=== PATIENT | female | born 1980 | race Hispanic/Latino ===

== ENCOUNTER 2020-08-18 04:44 | Observation (INO) | payer OTHER ==
--- OUTSIDE RECORDS SUMMARY | 2020-08-18 04:47 | XMS REPORT | Continuity of Care Document ---
:1980 Author Organization [facility] t Address [address] [place] [address] Dr. Merino [address] [place] [id number] Care Team Providers Name Role Phone Unavailable Unavailable Unavailable Problems This patient has no known problems. Allergies, Adverse Reactions, Alerts This patient has no known allergies or adverse reactions. Medications This patient has no known medications. Procedures This patient has no known procedures. Results This patient has no known results.
[2020-08-18] MEDS ORDERED: MORPHINE 4 MG/ML SYR ONE ×2 (05:21→11:42)
[2020-08-18] MEDS ORDERED: NA CHLORIDE 0.9% 1,000 ML ONE (05:22)
[2020-08-18] MEDS ORDERED: ONDANSETRON 4 MG/2 ML VIAL ONE ×3 (05:22→13:32)
[2020-08-18 05:23] LABS: Absolute Lymphocytes (CBC) 0.9 K/uL (0.7-4.9); Basophils % 0.9 % (0-1.3); Hematocrit 40.1 % (36.0-45.0); Lymphocytes % 6.5 % (15.3-44.8); RBC Red Blood Cell Count 4.49 M/uL (3.86-4.86)
[2020-08-18 05:35] LABS: Urine Blood TRACE (NEG); Urine Glucose NEGATIVE (NEG); Urine Protein 2+ (NEG); Urine Specific Gravity >1.030 (1.005-1.030); Urine pH 5.5 (5.0-7.0)
[2020-08-18 05:39] LABS: Albumin 3.9 g/dL (3.4-5.0); Bilirubin Direct 0.3 mg/dL (0-0.2); Bilirubin Total 1.4 mg/dL (0.2-1.0); Potassium 3.8 mmol/L (3.5-5.1); Protein, Total 7.9 g/dL (6.4-8.2)
[2020-08-18] MEDS ORDERED: CEFTRIAXONE/SWI 1gm 1 GM/10 ML SYR ONE (05:47)
--- NOTE | 2020-08-18 06:37 | EDPHYS ---
Physician Documentation [facility] Name: Pau Patterson Age: 40 yrs Sex: Female : 1980 Arrival Date: 08/18/2020 Time: 04:46 Bed 17 Private MD: ED Physician Delio Tovar HPI: 08/18 04:55 This 40 yrs old Female presents to ER via EMS with complaints of Abdominal mali Pain. 04:55 The patient presents with abdominal pain in the upper abdomen, in the lower abdomen. mali Onset: The symptoms/episode began/occurred 2 hour(s) ago. The symptoms do not radiate. Associated signs and symptoms: Pertinent positives:. The symptoms are described as crampy, sharp. Modifying factors: The symptoms are alleviated by remaining still, the symptoms are aggravated by nothing. Severity of pain: At its worst the pain was moderate severe in the emergency department the pain is unchanged. The patient has not experienced similar symptoms in the past. 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 - Social history:: Smoking status: unknown. - Family history:: not pertinent. ROS: 04:55 Constitutional: Negative for fever, chills, and weight loss, Eyes: Negative for injury, mali pain, redness, and discharge, ENT: Negative for injury, pain, and discharge, Neck: Negative for injury, pain, and swelling, Cardiovascular: Negative for chest pain, palpitations, and edema, Respiratory: Negative for shortness of breath, cough, wheezing, and pleuritic chest pain, Back: Negative for injury and pain, : Negative for injury, bleeding, discharge, and swelling, MS/Extremity: Negative for injury and deformity, Skin: Negative for injury, rash, and discoloration, Neuro: Negative for headache, weakness, numbness, tingling, and seizure, Psych: Negative for depression, anxiety, suicide ideation, homicidal ideation, and hallucinations, Allergy/Immunology: Negative for hives, rash, and allergies, Endocrine: Negative for neck swelling, polydipsia, polyuria, polyphagia, and marked weight changes, Hematologic/Lymphatic: Negative for swollen nodes, abnormal bleeding, and unusual bruising. 04:55 Abdomen/GI: Positive for abdominal pain, of the right lower quadrant and left lower quadrant. Exam: 04:55 Constitutional: This is a well developed, well nourished patient who is awake, alert, mali and in no acute distress. Head/Face: Normocephalic, atraumatic. Eyes: Pupils equal round and reactive to light, extra-ocular motions intact. Lids and lashes normal. Conjunctiva and sclera are non-icteric and not injected. Cornea within normal limits. Periorbital areas with no swelling, redness, or edema. ENT: Nares patent. No nasal discharge, no septal abnormalities noted. Tympanic membranes are normal and external auditory canals are clear. Oropharynx with no redness, swelling, or masses, exudates, or evidence of obstruction, uvula midline. Mucous membranes moist. Neck: Trachea midline, no thyromegaly or masses palpated, and no cervical lymphadenopathy. Supple, full range of motion without nuchal rigidity, or vertebral point tenderness. No Meningismus. Chest/axilla: Normal chest wall appearance and motion. Nontender with no deformity. No lesions are appreciated. Cardiovascular: Regular rate and rhythm with a normal S1 and S2. No gallops, murmurs, or rubs. Normal PMI, no JVD. No pulse deficits. Respiratory: Lungs have equal breath sounds bilaterally, clear to auscultation and percussion. No rales, rhonchi or wheezes noted. No increased work of breathing, no retractions or nasal flaring. Back: No spinal tenderness. No costovertebral tenderness. Full range of motion. Skin: Warm, dry with normal turgor. Normal color with no rashes, no lesions, and no evidence of cellulitis. MS/ Extremity: Pulses equal, no cyanosis. Neurovascular intact. Full, normal range of motion. Neuro: Awake and alert, GCS 15, oriented to person, place, time, and situation. Cranial nerves II-XII grossly intact. Motor strength 5/5 in all extremities. Sensory grossly intact. Cerebellar exam normal. Normal gait. Psych: Awake, alert, with orientation to person, place and time. Behavior, mood, and affect are within normal limits. 04:55 Abdomen/GI: Inspection: distension, that is mild, Bowel sounds: normal, Palpation: moderate abdominal tenderness, in the right upper quadrant, left upper quadrant, right lower quadrant and left lower quadrant, Liver: no appreciated palpable abnormalities, Hernia: not appreciated. Vital Signs: 04:47 BP 122 / 99; Pulse 107; Resp 22; Pulse Ox 97% on R/A; Weight 81.65 kg; Height 5 ft. 3 ll2 in. (160.02 cm); 05:00 BP 122 / 99; Pulse 101; Resp 22; Pulse Ox 97% on R/A; ll2 06:00 BP 116 / 73; Pulse 89; Resp 20; Pulse Ox 96% on R/A; ll2 07:00 BP 116 / 90; Pulse 87; Resp 18; Pulse Ox 97% ; rb3 08:00 BP 112 / 84; Pulse 91; Resp 17; Temp 99.0(O); Pulse Ox 96% on R/A; rb3 04:47 Body Mass Index 31.89 (81.65 kg, 160.02 cm) ll2 MDM: 04:46 Patient medically screened. mali 04:58 Differential diagnosis: bowel obstruction, diverticulitis, Endometriosis, Irritable mali bowel syndrome, non-specific abd pain, pancreatitis, Peptic Ulcer Disease, Pyelonephritis, Ureterolithiasis, urinary tract infection. Data reviewed: vital signs, nurses notes, lab test result(s), radiologic studies. Data interpreted: safety leader: rate is 107 beats/min, rhythm is regular, Pulse oximetry: on room air is 97 %. Test interpretation: by ED physician or midlevel provider:. Counseling: I had a detailed discussion with the patient and/or guardian regarding: the historical points, exam findings, and any diagnostic results supporting the discharge/admit diagnosis, lab results, radiology results. 08/18 04:47 Order name: Basic Metabolic Panel; Complete Time: 05:45 ll2 08/18 04:47 Order name: CBC with Diff; Complete Time: 05:45 ll2 08/18 04:47 Order name: Hepatic Function; Complete Time: 05:45 ll2 08/18 04:47 Order name: Lipase; Complete Time: 05:45 ll2 08/18 04:49 Order name: Urine Culture [facility] 08/18 04:49 Order name: CT Abd/Pelvis - IV Contrast Only; Complete Time: 18:26 [facility] 08/18 05:15 Order name: Urine --Ancillary (enter results); Complete Time: 05:45 [facility] 08/18 05:15 Order name: Urine Dipstick--Ancillary (enter results); Complete Time: 05:45 08/18 06:52 Order name: COVID-19 : Document "Date of Symptom Onset" if Symptomatic. 3 08/18 10:17 Order name: SARS-COV-2 RT PCR; Complete Time: 18:26 [facility] 08/18 04:47 Order name: IV Saline Lock; Complete Time: 05:02 [facility] 08/18 04:47 Order name: Labs collected and sent; Complete Time: 05:01 [facility] 08/18 04:49 Order name: IV Saline Lock; Complete Time: 05:00 [facility] 08/18 04:49 Order name: Labs collected and sent; Complete Time: 05:00 [facility] 08/18 04:49 Order name: Urine Dipstick-Ancillary (obtain specimen); Complete Time: 05:14 [facility] 08/18 04:50 Order name: Urine Test (obtain specimen); Complete Time: 05:14 [facility] Administered Medications: 05:00 Drug: NS 0.9% 1000 ml Route: IV; Rate: 1 bolus; Site: right antecubital; ll2 05:00 Drug: morphine 4 mg Route: IVP; Site: right antecubital; ll2 05:00 Drug: Zofran (Ondansetron) 4 mg Route: IVP; Site: right antecubital; ll2 05:20 Drug: Rocephin 1 grams Route: IV; Rate: per protocol; Site: right antecubital; ll2 07:05 Drug: Zosyn 3.375 grams Route: IVPB; Infused Over: 60 mins; Site: right antecubital; ll2 08:02 Follow up: Response: No adverse reaction; IV Status: Completed infusion rb3 Disposition: 08/18/20 06:37 Hospitalization ordered by Wes Scott for Observation. Preliminary diagnosis are Abdominal tenderness, Acute appendicitis. - Bed requested for [facility] ER HOLD. - Status is Observation. rb3 - Condition is Stable. - Problem is new. - Symptoms have improved. Signatures: Dispatcher [employer] Iraida Moreau RN RN dm5 Delio Tovar MD MD cha Linscombe, Lacie, RN RN ll2 Mariela Reddy, RN RN rb3 Corrections: (The following items were deleted from the chart) 05:34 04:50 BASIC METABOLIC PANEL+C.LAB.BRZ ordered. EDMS EDMS 05:34 04:50 CBC+H.LAB.BRZ ordered. EDMS EDMS 05:34 04:50 HEPATIC FUNCTION+C.LAB.BRZ ordered. EDMS EDMS 05:34 04:50 LIPASE+C.LAB.BRZ ordered. EDMS EDMS 10:34 06:37 Hospitalization Ordered by Wes Scott MD for Observation. Preliminary dm5 diagnosis is Abdominal tenderness; Acute appendicitis. Bed requested for Telemetry/MedSurg (observation). Status is Observation. Condition is Stable. Problem is new. Symptoms have improved. [facility] 18:31 10:34 08/18/2020 06:37 Hospitalization Ordered by Wes Scott MD for Observation. rb3 Preliminary diagnosis is Abdominal tenderness; Acute appendicitis. Bed requested for [facility] ER HOLD. Status is Observation. Condition is Stable. Problem is new. Symptoms have improved. dm5
--- NOTE | 2020-08-18 06:37 | ER ---
Nurse's Notes [facility] Name: Pau Patterson Age: 40 yrs Sex: Female : 1980 Arrival Date: 08/18/2020 Time: 04:46 Bed 17 Private MD: Diagnosis: Abdominal tenderness;Acute appendicitis Presentation: 08/18 04:47 Chief complaint: EMS states: toned out for RT and LT lower quadrant pain that began ll2 around 0200. pt denies diarrhea or nausea. rebound tenderness noted on assessment. Coronavirus screen: Client denies travel out of the [place] in the last 14 days. At this time, the client does not indicate any symptoms associated with coronavirus-19. Ebola Screen: Patient negative for fever greater than or equal to 101.5 degrees Fahrenheit, and additional compatible Ebola Virus Disease symptoms. Initial Sepsis Screen: Does the patient meet any 2 criteria? No. Patient's initial sepsis screen is negative. Does the patient have a suspected source of infection? No. Patient's initial sepsis screen is negative. Risk Assessment: Do you want to hurt yourself or someone else? Patient reports no desire to harm self or others. 04:47 Method Of Arrival: EMS: [facility] 2 04:47 Acuity: BEVERLY 3 ll2 05:25 Onset of symptoms was August 18, 2020. ll2 Triage Assessment: 04:52 General: Appears uncomfortable, Behavior is cooperative, appropriate for age. Pain: ll2 Complains of pain in right lower quadrant and left lower quadrant. EENT: No signs and/or symptoms were reported regarding the EENT system. Neuro: Level of Consciousness is awake, alert, obeys commands, Oriented to person, place, time, situation. Cardiovascular: Patient's skin is warm and dry. Respiratory: Airway is patent Respiratory effort is even, unlabored, Respiratory pattern is regular, symmetrical. GI: Abdomen is round. : No signs and/or symptoms were reported regarding the genitourinary system. Derm: Skin is intact, Skin is pink, warm \T\ dry. Musculoskeletal: Circulation, motion, and sensation intact. Range of motion: intact in all extremities. 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 - Social history:: Smoking status: unknown. - Family history:: not pertinent. Screenin:54 Abuse screen: Denies threats or abuse. Nutritional screening: No deficits noted. ll2 Tuberculosis screening: No symptoms or risk factors identified. Fall Risk None identified. Assessment: 04:54 Reassessment: see triage assessment. ll2 04:55 GI: Bowel sounds present X 4 quads. ll2 06:21 Reassessment: Patient and/or family updated on plan of care and expected duration. Pain ll2 level reassessed. Patient is alert, oriented x 3, equal unlabored respirations, skin warm/dry/pink. 07:08 General: Appears in no apparent distress. comfortable, Behavior is calm, cooperative. rb3 Pain: Complains of pain in left lower quadrant and right lower quadrant. Neuro: Level of Consciousness is awake, alert, obeys commands, Oriented to person, place, time, situation. Cardiovascular: Patient's skin is warm and dry. Respiratory: Airway is patent Respiratory effort is even, unlabored, Respiratory pattern is regular, symmetrical. 08:00 Reassessment: Patient appears in no apparent distress at this time. No changes from rb3 previously documented assessment. 09:00 Reassessment: Patient appears in no apparent distress at this time. Patient and/or rb3 family updated on plan of care and expected duration. Pain level reassessed. Patient is alert, oriented x 3, equal unlabored respirations, skin warm/dry/pink. 10:00 Reassessment: Patient appears in no apparent distress at this time. No changes from rb3 previously documented assessment. Vital Signs: 04:47 BP 122 / 99; Pulse 107; Resp 22; Pulse Ox 97% on R/A; Weight 81.65 kg; Height 5 ft. 3 ll2 in. (160.02 cm); 05:00 BP 122 / 99; Pulse 101; Resp 22; Pulse Ox 97% on R/A; ll2 06:00 BP 116 / 73; Pulse 89; Resp 20; Pulse Ox 96% on R/A; ll2 07:00 BP 116 / 90; Pulse 87; Resp 18; Pulse Ox 97% ; rb3 08:00 BP 112 / 84; Pulse 91; Resp 17; Temp 99.0(O); Pulse Ox 96% on R/A; rb3 04:47 Body Mass Index 31.89 (81.65 kg, 160.02 cm) ll2 ED Course: 04:46 Patient arrived in ED. 04:46 Delio Tovar MD is Attending Physician. [facility] 04:47 Soraya Chirinos, MARY JO is Primary Nurse. ll2 04:50 Inserted saline lock: 22 gauge in left forearm, using aseptic technique. Blood ds4 collected. 04:52 Triage completed. ll2 04:54 Patient has correct armband on for positive identification. Pulse ox on. NIBP on. ll2 04:54 Arm band placed on right wrist. ll2 04:54 No provider procedures requiring assistance completed. ll2 06:15 CT Abd/Pelvis - IV Contrast Only In Process Unspecified. EDMD 06:35 Wes Scott MD is Hospitalizing Provider. [facility] 07:41 Primary Nurse role handed off by Soraya Chirinos, MARY JO 1 08:25 Mariela Reddy, MARY JO is Primary Nurse. rb3 13:30 Patient admitted, IV remains in place. rb3 Administered Medications: 05:00 Drug: NS 0.9% 1000 ml Route: IV; Rate: 1 bolus; Site: right antecubital; ll2 05:00 Drug: morphine 4 mg Route: IVP; Site: right antecubital; ll2 05:00 Drug: Zofran (Ondansetron) 4 mg Route: IVP; Site: right antecubital; ll2 05:20 Drug: Rocephin 1 grams Route: IV; Rate: per protocol; Site: right antecubital; ll2 07:05 Drug: Zosyn 3.375 grams Route: IVPB; Infused Over: 60 mins; Site: right antecubital; ll2 08:02 Follow up: Response: No adverse reaction; IV Status: Completed infusion rb3 Outcome: 06:37 Decision to Hospitalize by Provider. mali 13:30 Admitted to OR rb3 13:30 Condition: stable 13:30 Instructed on the need for admit. 18:31 Patient left the ED. rb3 Signatures: Dispatcher [employer] EDMS Acosta, Minh, RN Delio Corbin MD MD cha Martinez, Silvio em1 Ayo Hwang ds4 Soraya Chirinos, RN RN ll2 Mariela Reddy, RN RN rb3
[2020-08-18] MEDS ORDERED: PIPER/TAZO/NS 3.375gm 3.375 GM/100 ML BAG ONE (07:01)
[2020-08-18] MEDS ORDERED: ACETYLCYST 6,000 MG/30 ML VIAL ONE (09:34)
[2020-08-18 10:40] VITALS: BMI 31.8
[2020-08-18] MEDS: D5 0.45 NS 1,000 ML IV SCH ×2 (10:44→16:09)
[2020-08-18] MEDS ORDERED: ONDANSETRON 4 MG/2 ML VIAL IV PRN (10:44)
[2020-08-18] MEDS: FAMOTIDINE 20 MG/2 ML VIAL IV SCH ×2 (10:44→20:30)
[2020-08-18] MEDS ORDERED: ACETAMINOPHEN 325 MG TABLET PO PRN (10:44)
[2020-08-18] MEDS: PIPER/TAZO/NS 3.375gm 3.375 GM/100 ML BAG IVPB SCH ×3 (11:00→20:31)
[2020-08-18] MEDS ORDERED: FAMOTIDINE 20 MG/2 ML VIAL IV ONE (11:43)
[2020-08-18] MEDS: MORPHINE 4 MG/ML SYR IV PRN (11:43)
[2020-08-18] MEDS ORDERED: D5 0.45 NS 1,000 ML IV ONE (11:43)
[2020-08-18] MEDS ORDERED: FENTANYL CITR 100 MCG/2 ML ONE (13:31)
[2020-08-18] MEDS ORDERED: LIDOCAINE 2% MPF 5 ML VIAL ONE (13:32)
[2020-08-18] MEDS ORDERED: KETOROLAC 30 MG/ML INJ ONE (13:32)
[2020-08-18] MEDS ORDERED: dexAMETHasone 10 MG/ML VIAL ONE (13:32)
[2020-08-18] MEDS ORDERED: ROCURONIUM 50 MG/5 ML VIAL IV ONE (13:32)
[2020-08-18] MEDS ORDERED: propofoL 200 MG/20 ML VIAL IV ONE (13:32)
[2020-08-18] MEDS ORDERED: MIDAZOLAM HCL 2 MG/2 ML INJ ONE (13:32)
--- NOTE | 2020-08-18 13:35 | P.HP ---
Date of Service: 08/18/20 PC: This 40-year-old female presents emergency room via EMS with right lower quadrant abdominal pain for diagnosis and treatment. HPC: Patient had sudden onset of right lower quadrant abdominal pain, hurts when she tried to walk. Pain is been unrelenting. Has AE slightly since she had some pain medicine while here but otherwise pains persist. PMH: Negative PSHx: Prior cholecystectomy SOC: No known allergies SYS REVIEW: No cough, wheeze, shortness of breath. No chest pain or palpitations. Says she has otherwise been in pretty good shape. Does have some irregular periods. O/E awake alert vital signs are stable HEENT: Nonicteric Chest: Air entry equal bilaterally ABD: Tenderness with guarding and rebound on the right lower quadrant LOCO: Intact DATA: Elevated white cell count IMPRESSION: CT scan shows appendicitis supporting clinical finding PLAN: I will take her the operating room for laparoscopic possible open appendectomy. The risks of this procedure have been discussed. The possibility of bleeding, infection, injury to bowel blood vessels and surrounding structures were outlined. The possible need for an open and/or further surgeries and procedures was described. She understands and wants to proceed.
[2020-08-18] MEDS ORDERED: Ringers Lactate 1,000 ML IV ONE ×2 (13:46→14:44)
--- NOTE | 2020-08-18 14:04 | RAD REPORT ---
EXAM DESCRIPTION: CT - Abdomen Pelvis W Contrast - 08/18/2020 6:58 am ADDENDUM #[address] Tovar 6:50 AM 08/18/2020 Electronically signed by: Elissa Chaney MD 08/18/2020 6:57 AM PHYSICAL AERODYNAMICIST End of Addendum EXAM: CT Abdomen and Pelvis With Intravenous Contrast CLINICAL HISTORY: ABD PAIN TECHNIQUE: Axial computed tomography images of the abdomen and pelvis with intravenous contrast. Sagittal and coronal reformatted images were created and reviewed. This CT exam was performed using one or more of the following dose reduction techniques: automated exposure control, adjustment of the mA and/or kV according to patient size, and/or use of iterative reconstruction technique. COMPARISON: No relevant prior studies available. FINDINGS: Limitations: None. Lung bases: No abnormality noted. Pleural space: No abnormality noted. Heart: No abnormality noted. Mediastinum: No abnormality noted. ABDOMEN: Liver: No abnormality noted. Gallbladder and bile ducts: Cholecystectomy. Pancreas: Homogeneous enhancement. No mass, inflammation or ductal dilation. Spleen: No abnormality noted. Adrenals: Visualized portions appear normal. Kidneys and ureters: Homogeneous enhancement. No mass, hydronephrosis or stone. Tiny stones c ould be obscured by contrast. Stomach and bowel: No distension or mucosal thickening. No inflammation noted. PELVIS: Appendix: The appendix is dilated to about 14 mm and is inflamed. It courses toward and termina elena within the right adnexa. Bladder: No filling defects to suggest mass or large stone. No inflammation. Reproductive: Incidental dense left ovarian calcifications noted. ABDOMEN and PELVIS: Intraperitoneal space: Small amounts of free fluid noted in the pelvis. Bones/joints: No acute change noted. Soft tissues: No abnormality noted. Vasculature: No abdominal aortic aneurysm. Lymph nodes: No pathologically enlarged lymph nodes. IMPRESSION: Acute uncomplicated appendicitis. Electronically signed by: Elissa Chaney MD 08/18/2020 6:26 AM PHYSICAL AERODYNAMICIST ADDENDUM #[address] Tovar 6:50 AM 08/18/2020 Electronically signed by: Elissa Chaney MD 08/18/2020 6:57 AM PHYSICAL AERODYNAMICIST End of Addendum ADDENDUM #[address] Tovar 6:50 AM 08/18/2020 Electronically signed by: Elissa Chaney MD 08/18/2020 6:57 AM PHYSICAL AERODYNAMICIST End of Addendum EXAM: CT Abdomen and Pelvis With Intravenous Contrast CLINICAL HISTORY: ABD PAIN TECHNIQUE: Axial computed tomography images of the abdomen and pelvis with intravenous contrast. S agittal and coronal reformatted images were created and reviewed. This CT exam was performed using one or more of the following dose reduction techniques: automated exposure control, adjustment of t he mA and/or kV according to patient size, and/or use of iterative reconstruction technique. COMPARISON: No relevant prior studies available. FINDINGS: Limitations: None. Lung bases: No abnormality noted. Pleural space: No abnormality noted. Heart: No abnormality noted. Mediastinum: No abnormality noted. ABDOMEN: Liver: No abnormality noted. Gallbladder and bile ducts: Cholecystectomy. Pancreas: Homogeneous enhancement. No mass, inflammation or ductal dilation. Spleen: No abnormality noted. Adrenals: Visualized portions appear normal. Kidneys and ureters: Homogeneous enhancement. No mass, hydronephrosis or stone. Tiny stones c ould be obscured by contrast. Stomach and bowel: No distension or mucosal thickening. No inflammation noted. PELVIS: Appendix: The appendix is dilated to about 14 mm and is inflamed. It courses toward and termina elena within the right adnexa. Bladder: No filling defects to suggest mass or large stone. No inflammation. Reproductive: Incidental dense left ovarian calcifications noted. ABDOMEN and PELVIS: Intraperitoneal space: Small amounts of free fluid noted in the pelvis. Bones/joints: No acute change noted. Soft tissues: No abnormality noted. Vasculature: No abdominal aortic aneurysm. Lymph nodes: No pathologically enlarged lymph nodes. IMPRESSION: Acute uncomplicated appendicitis. Electronically signed by: Elissa Chaney MD 08/18/2020 6:26 AM PHYSICAL AERODYNAMICIST Due to temporary technical issues with the PACS/Fluency reporting system, reports are being signed by the in house radiologists without review as a courtesy to insure prompt reporting. The interpreting radiologist is fully responsible for the content of the report.
[2020-08-18] MEDS ORDERED: Phenylephrine HCl 10 MG/ML 1 ML VIAL ONE (14:37)
[2020-08-18] MEDS ORDERED: NS 0.9% VIAL 10 ML ONE (14:38)
[2020-08-18] MEDS ORDERED: ALBUMIN HUM 5% 250 ML IV ONE (14:48)
[2020-08-18] MEDS ORDERED: GLYCOPYRROLATE 0.2 MG/ML SYR ONE (15:15)
[2020-08-18] MEDS ORDERED: NEOSTIGMINE 1 MG/ML -5 ML ONE (15:15)
--- NOTE | 2020-08-18 15:24 | P.OP ---
Preoperative diagnosis: Acute abdomen with appendicitis Postoperative diagnosis: The same Primary procedure: Laparoscopic appy Anesthesia: General Estimated blood loss: Less than 20 cc Specimen: 1 appendix Operative Technique: The patient was brought to the operating room, and placed supine on the table. After the induction of adequate general endotracheal anesthesia, the area of the abdomen was prepped with a DuraPrep solution, and he was draped in the usual aseptic manner. A subumbilical incision was made. This was brought down through the skin and subcutaneous tissue. The Visiport was used to enter the peritoneal cavity and created pneumoperitoneum to approximately 12 mm of mercury. Under direct vision a 5 mm trocar was placed in the lower midline and another 5 mm in the right upper quadrant. The patient was then positioned in Trendelenburg and rolled to the left side. We were able to visualize right lower quadrant. We could see an acute inflammatory process in the right lower quadrant. There was the cecum adherent to the anterior abdominal wall as well as a pelvic sidewall. The tip of this inflammatory phlegmon also abutted the right ovary. The right ovary was divided away from the inflammatory friend mom. Once this had been freed we were able mobilize the peritoneum on the right side to free up the cecum and appendix. Gently grasping the appendix were able to dissect down and finally identify the junction of the appendix with the cecum. The mesentery of the appendix was now isolated. A gentle manipulation with a grasper lattice remove some of the edema from the appendiceal mesentery. An opening was made into the mesentery of the appendix just at the bases its junction with the cecum. The linear Stapler was now introduced. It was placed across the base of the a ppendix. The instrument was fired. Attention was now turned towards the mesentery of the appendix. Once again a vascular reload was used to take this down. The appendix was then placed into a Endo-Catch pouch and brought out through the umbilical trocar site. Attention was turned back towards the right lower quadrant. The area was gently irrigated with the saline solution. The effluent was aspirated. 0.25% Marcaine was sprayed into the right lower quadrant. Attention was turned towards the umbilical trocar. Using the endo-close absorbable sutures were placed to close the defect with 2 sutures. The patient was now returned to the neutral position on the OR table. The pneumoperitoneum was collapsed, the umbilical sutures tied, and nasim applied to the skin. At the end of the procedure the patient was in stable condition and sent to the recovery room. Needle sponge and instrument count were correct. 1 specimen was sent for histopathology. Sterile dressings had been applied. Complications: None Transferred to: Recovery Room Condition: Good
[2020-08-18] MEDS ORDERED: ALBUTEROL INHALER 60 PUFF/8 GM IH ONE (15:25)
[2020-08-19] MEDS: PIPER/TAZO/NS 3.375gm 3.375 GM/100 ML BAG IVPB SCH ×3 (00:52→16:00)
[2020-08-19] MEDS: FAMOTIDINE 20 MG/2 ML VIAL IV SCH ×2 (07:38→21:21)
[2020-08-19] MEDS: D5 0.45 NS 1,000 ML IV SCH ×3 (07:39→15:33)
[2020-08-19] MEDS: MORPHINE 4 MG/ML SYR IV PRN (07:50)
[2020-08-19] MEDS: HYDROCODONE/APAP 7.5/325 MG TAB PO PRN ×3 (11:44→21:34)
[2020-08-20] MEDS: D5 0.45 NS 1,000 ML IV SCH ×2 (00:14→10:44)
[2020-08-20] MEDS: PIPER/TAZO/NS 3.375gm 3.375 GM/100 ML BAG IVPB SCH ×2 (00:15→08:02)
[2020-08-20] MEDS: FAMOTIDINE 20 MG/2 ML VIAL IV SCH (08:02)
[2020-08-20 09:30] VITALS: TEMP 97.6
[2020-08-20 12:08] VITALS: BP 136/69
[2020-08-20 12:32] VITALS: O2SAT 94
--- NOTE | 2020-09-22 14:29 | P.DS ---
Admission Date: 08/18/20 Discharge Date: 09/22/20 Discharge Condition: GOOD Reason for Admission: Acute post apart of abdominal pain Procedures: Laparoscopic appendectomy Brief History of Present Illness: Patient presents to the emergency room with a week long history of right lower quadrant abdominal pain Hospital Course: The patient presents to the emergency room with severe right lower quadrant abdominal pain for diagnosis and treatment. She was found have an acute abdomen with appendicitis. She was brought to the operating room where she underwent a laparoscopic appendectomy. She was admitted for observation postoperatively due to acute postoperative abdominal pain. After receiving analgesics, IV fluids, she was up ambulating, tolerating a diet, and her pain was well controlled on oral medication. She was deemed fit for discharge. Vital Signs/Physical Exam: Temp Pulse Resp BP Pulse Ox 97.6 F 96 H 20 136/69 94 08/20/20 12:00 08/20/20 12:00 08/20/20 12:00 08/20/20 12:00 08/20/20 12:00 Laboratory Data at Discharge: WBC 13.90 K/uL (4.3-10.9) H 08/18/20 04:55 Hgb 13.6 g/dL (12.0-15.0) 08/18/20 04:55 Hct 40.1 % (36.0-45.0) 08/18/20 04:55 Plt Count 330 K/uL (152-406) 08/18/20 04:55 Sodium 134 mmol/L (136-145) L 08/18/20 04:55 Potassium 3.8 mmol/L (3.5-5.1) 08/18/20 04:55 BUN 12 mg/dL (7-18) 08/18/20 04:55 Creatinine 0.97 mg/dL (0.55-1.3) 08/18/20 04:55 Glucose 135 mg/dL (74-106) H 08/18/20 04:55 Total Bilirubin 1.4 mg/dL (0.2-1.0) H 08/18/20 04:55 AST 23 U/L (15-37) 08/18/20 04:55 ALT 51 U/L (12-78) 08/18/20 04:55 Alkaline Phosphatase 100 U/L (45-117) 08/18/20 04:55 Lipase 59 U/L (73-393) L 08/18/20 04:55 Home Medications: Ciprofloxacin HCl [Cipro 500 MG Tablet] 500 mg PO BID 5 Days #10 tab 08/20/20 metroNIDAZOLE [Flagyl] 500 mg PO Q8H 5 Days #15 tablet 08/20/20 New Medications: Ciprofloxacin HCl [Cipro 500 MG Tablet] 500 mg PO BID 5 Days #10 tab metroNIDAZOLE [Flagyl] 500 mg PO Q8H 5 Days #15 tablet Diet: Regular Activity: Ad camila Followup: Wes Scott MD [ACTIVE - CAN ADMIT] - Unknown,U [Primary Care Provider] -
== END 2020-08-20 14:00 | disposition home or self-care (01) ==
LOC: ER 04:44 → ERHOLD 06:58 → 4TH 15:10
PROVIDERS: ADMIT Surgery; ATTEND Surgery
PROC: 0DTJ4ZZ Resection of Appendix, Percutaneous Endoscopic Approach (ICD-10-PCS; principal; 2020-08-18 13:00)
DX: K35.80 Unspecified acute appendicitis (principal); E66.9 Obesity, unspecified; Z68.31 Body mass index [BMI] 31.0-31.9, adult; F17.200 Nicotine dependence, unspecified, uncomplicated; Z90.49 Acquired absence of other specified parts of digestive tract; Z20.822 Contact with and (suspected) exposure to COVID-19
CPT/HCPCS: 96365; 87088; 85025; 87086; 80048; 36415; 81025; 80076; 88304; 81003; 83690; 74177; 94010; 96375; 99285; 44970; U0003; Q9967; J2704; J2370; J2250; J3010; J2543 ×3; J1100; P9045; J2710; J0696; J7799 ×6; J7120 ×2; J7030; J2405 ×3; G0378

== ENCOUNTER 2021-07-10 09:52 | Emergency (ER) | payer OTHER ==
--- OUTSIDE RECORDS SUMMARY | 2021-07-10 09:55 | XMS REPORT | Continuity of Care Document ---
:1980 Author Organization Formerly [facility] t Address [address] [place] [address] Dr. Merino [address] [place] [id number] Care Team Providers Name Role Phone Unavailable Unavailable Unavailable Problems This patient has no known problems. Allergies, Adverse Reactions, Alerts This patient has no known allergies or adverse reactions. Medications This patient has no known medications. Procedures This patient has no known procedures. Results This patient has no known results.
[2021-07-10] MEDS ORDERED: GUAIFENESIN 600 MG SA TAB PO ONE (10:39)
[2021-07-10 11:59] LABS: SARS-COV-2 RT PCR POSITIVE (NEGATIVE)
--- NOTE | 2021-07-10 12:01 | EDPHYS ---
Physician Documentation [facility] Name: Pau Patterson Age: 41 yrs Sex: Female : 1980 Arrival Date: 07/10/2021 Time: 10:24 Bed Waiting Private MD: SAGE Physician Delio Tovar HPI: 07/10 10:33 This 41 yrs old Female presents to ER via Ambulatory with complaints of pm1 Congestion. 10:33 The patient or guardian reports nasal congestion. Onset: The symptoms/episode pm1 began/occurred 4 day(s) ago. Severity of symptoms: in the emergency department the symptoms have improved. Modifying factors: The symptoms are alleviated by the symptoms are aggravated by nothing. Associated signs and symptoms: Pertinent positives: Headache and fever resolved, nasal congestion remaining. 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 The patient has not experienced similar symptoms in the past. The patient has not recently seen a physician. 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 - Social history:: Smoking status: Patient reports the use of cigarette tobacco products, smokes one-half pack cigarettes per day. ROS: 10:33 Eyes: Negative for injury, pain, redness, and discharge, ENT: Negative for injury, pm1 pain, and discharge, Neck: Negative for injury, pain, and swelling, Cardiovascular: Negative for chest pain, palpitations, and edema, Respiratory: Negative for shortness of breath, cough, wheezing, and pleuritic chest pain, Abdomen/GI: Negative for abdominal pain, nausea, vomiting, diarrhea, and constipation, Back: Negative for injury and pain, MS/Extremity: Negative for injury and deformity, Skin: Negative for injury, rash, and discoloration. 10:33 Constitutional: Positive for body aches, fever. 10:33 Neuro: Positive for headache. 10:33 All other systems are negative. Exam: 10:33 Constitutional: This is a well developed, well nourished patient who is awake, alert, pm1 and in no acute distress. Head/Face: Normocephalic, atraumatic. 10:33 Skin: Warm, dry with normal turgor. Normal color with no rashes, no lesions, and no evidence of cellulitis. MS/ Extremity: Pulses equal, no cyanosis. Neurovascular intact. Full, normal range of motion. 10:33 Eyes: Exam is negative for acute changes, Extraocular movements: no acute changes, Sclera: no acute changes, icterus, is not appreciated. 10:33 ENT: Exam is negative for acute changes, Mouth: Lips: normal, moist, Oral mucosa: normal, pink and intact, moist. 10:33 Cardiovascular: Exam negative for acute changes, Rate: normal, Rhythm: regular, Pulses: no pulse deficits are appreciated, Heart sounds: normal, normal S1and S2. 10:33 Respiratory: Exam negative for acute changes, respiratory distress, shortness of breath, Breath sounds: are clear throughout. 10:33 Abdomen/GI: Inspection: obese Palpation: abdomen is soft and non-tender, in all quadrants. 10:33 Neuro: Exam negative for acute changes, Orientation: is normal, Mentation: is normal, Motor: is normal, moves all fours, Gait: is steady, at a normal pace, without difficulty. Vital Signs: 10:26 BP 121 / 88; Pulse 70; Resp 16; Temp 97.3; Pulse Ox 100% ; Weight 81.65 kg; Height 5 vg1 ft. 3 in. (160.02 cm); Pain 0/10; 10:26 Body Mass Index 31.89 (81.65 kg, 160.02 cm) vg1 MDM: 10:40 Data reviewed: vital signs. Data interpreted: Pulse oximetry: on room air is 100 %. pm1 Interpretation: normal. 10:40 Patient medically screened. pm1 12:00 Counseling: I had a detailed discussion with the patient and/or guardian regarding: the pm1 historical points, exam findings, and any diagnostic results supporting the discharge/admit diagnosis, lab results, the need for outpatient follow up, to return to the emergency department if symptoms worsen or persist or if there are any questions or concerns that arise at home. 07/10 10:30 Order name: COVID-19/FLU A+B (Document "Date of Onset" if Symptomatic); Complete Time: vg1 12:10 Administered Medications: 10:38 Drug: guaiFENesin Liquid 5 ml Route: PO; vg1 12:14 Follow up: Response: No adverse reaction; Marked relief of symptoms vg1 Disposition: 07/11 07:34 Co-signature as Attending Physician, Delio Tovar MD I agree with the assessment and mali plan of care. Disposition Summary: 07/10/21 12:00 Discharge Ordered Location: Home pm1 Problem: new pm1 Symptoms: have improved pm1 Condition: Stable pm1 Diagnosis - Coronavirus infection, unspecified pm1 Followup: pm1 - With: Emergency Department - When: As needed - Reason: Worsening of condition Followup: pm1 - With: Private Physician - When: 2 - 3 days - Reason: Recheck today's complaints, Continuance of care, Re-evaluation by your physician Discharge Instructions: - Discharge Summary Sheet pm1 - COVID-19 pm1 - COVID-19 Frequently Asked Questions pm1 - 10 Things You Can Do to Manage Your COVID-19 Symptoms at Home - [facility] [place] pm1 - COVID-19: Quarantine vs. Isolation - [facility] [place] pm1 Forms: - Work release form pm1 - Medication Reconciliation Form pm1 - Thank You Letter pm1 - Antibiotic Education pm1 - Prescription Opioid Use pm1 Signatures: Dispatcher [employer] EDDelio Pop MD MD cha Marinas, Patrick, [employer] pm1 Heidy Cheung RN RN vg1 Corrections: (The following items were deleted from the chart) 07/10 10:38 10:33 Associated signs and symptoms: Pertinent positives: Headache and fever resolved, pm1 nasal congestion remaining. 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
--- NOTE | 2021-07-10 12:01 | ER ---
Nurse's Notes [facility] Name: Pau Patterson Age: 41 yrs Sex: Female : 1980 Arrival Date: 07/10/2021 Time: 10:24 Bed Waiting Private MD: Diagnosis: Coronavirus infection, unspecified Presentation: 07/10 10:26 Chief complaint: Patient states: body aches, fever, h/a and congestion x 4 days. vg1 Coronavirus screen: Vaccine status: Patient reports being unvaccinated. Client denies travel out of the [place] in the last 14 days. Client presents with at least one sign or symptom that may indicate coronavirus-19. Standard/surgical mask placed on the client. Ebola Screen: Patient negative for fever greater than or equal to 101.5 degrees Fahrenheit, and additional compatible Ebola Virus Disease symptoms. Initial Sepsis Screen: Does the patient meet any 2 criteria? No. Patient's initial sepsis screen is negative. Does the patient have a suspected source of infection? No. Patient's initial sepsis screen is negative. Risk Assessment: Do you want to hurt yourself or someone else? Patient reports no desire to harm self or others. Onset of symptoms was July 06, 2021. 10:26 Method Of Arrival: Ambulatory vg1 10:26 Acuity: BEVERLY 4 vg1 Triage Assessment: 10:27 General: Appears in no apparent distress. comfortable, Behavior is calm, cooperative. vg1 Pain: Denies pain. Respiratory: Airway is patent Respiratory effort is even, unlabored, Breath sounds are clear bilaterally. 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 - Social history:: Smoking status: Patient reports the use of cigarette tobacco products, smokes one-half pack cigarettes per day. Screenin:18 Abuse screen: Denies threats or abuse. Nutritional screening: No deficits noted. vg1 Tuberculosis screening: No symptoms or risk factors identified. Fall Risk None identified. Vital Signs: 10:26 BP 121 / 88; Pulse 70; Resp 16; Temp 97.3; Pulse Ox 100% ; Weight 81.65 kg; Height 5 vg1 ft. 3 in. (160.02 cm); Pain 0/10; 10:26 Body Mass Index 31.89 (81.65 kg, 160.02 cm) vg1 ED Course: 10:24 Patient arrived in ED. ja2 10:27 Triage completed. vg1 10:27 Arm band placed on. vg1 10:31 COVID swab sent to lab. Flu and/or RSV swab sent to lab. vg1 10:37 Ruben Flaherty NP is PHCP. pm1 10:37 Delio Tovar MD is Attending Physician. pm1 12:04 Notified Nurse Practitioner and/or Physician 911 Telecommunicator of a critical lab result(s), ll1 covid +, Suzi Flaherty. 12:18 Patient has correct armband on for positive identification. vg1 12:18 No provider procedures requiring assistance completed. Patient did not have IV access vg1 during this emergency room visit. Administered Medications: 10:38 Drug: guaiFENesin Liquid 5 ml Route: PO; vg1 12:14 Follow up: Response: No adverse reaction; Marked relief of symptoms vg1 Outcome: 12:00 Discharge ordered by . pm1 12:18 Discharged to home ambulatory. vg1 12:18 Condition: good 12:18 Discharge instructions given to patient, Instructed on discharge instructions, follow up and referral plans. Demonstrated understanding of instructions, follow-up care. 12:19 Patient left the ED. vg1 Signatures: Ruben Flaherty NP HELP DESK SPECIALIST pm1 Heidy Cheung RN RN 1 Elisa Camarena RN RN ll1 Michelle Burris [facility]
[2021-07-10 12:25] VITALS: BP 121/88; TEMP 97.3; O2SAT 100
== END 2021-07-10 12:19 | disposition home or self-care (01) ==
LOC: ER 09:52
DX: U07.1 COVID-19 (principal); F17.210 Nicotine dependence, cigarettes, uncomplicated
CPT/HCPCS: 0240U; 99283

== ENCOUNTER 2023-01-05 22:17 | Emergency (ER) | payer OTHER ==
--- OUTSIDE RECORDS SUMMARY | 2023-01-05 22:20 | XMS REPORT | Continuity of Care Document ---
:1980 [address] [facility] t Address [address] [place] [id number] Care Team Providers Name Role Phone Unavailable Unavailable Unavailable Problems This patient has no known problems. Allergies, Adverse Reactions, Alerts This patient has no known allergies or adverse reactions. Medications This patient has no known medications. Procedures This patient has no known procedures. Results This patient has no known results.
[2023-01-05] MEDS ORDERED: ONDANSETRON 4 MG/2 ML VIAL ONE (22:54)
[2023-01-05] MEDS ORDERED: MORPHINE 4 MG/ML SYR ONE (22:54)
--- NOTE | 2023-01-05 23:52 | EDPHYS ---
Physician Documentation [facility] Name: Pau Patterson Age: 42 yrs Sex: Female : 1980 Arrival Date: 01/05/2023 Time: 22:17 Bed 13 Private MD: ED Physician Randolph Rachel HPI: 01/05 22:42 This 42 yrs old Female presents to ER via Ambulatory with complaints of Ankle sb4 Injury - FELL DOWN A RAMP. 22:42 The patient presents with an injury, pain, that is acute. The complaints affect the sb4 left ankle. Onset: The symptoms/episode began/occurred this morning. Context: The problem was sustained outdoors, resulted from a mis-step by the patient, The mechanism of injury involved inversion of the affected ankle. The patient can partially bear weight on the affected extremity. Modifying factors: The symptoms are alleviated by sitting, the symptoms are aggravated by weight bearing, movement. Historical: - PSHx: 22:36 Appendectomy; Cholecystectomy; kd3 - Immunization history:: Adult Immunizations up to date. - Social history:: Smoking status: Patient reports the use of cigarette tobacco products, denies chronic smoking, but will smoke occasionally. ROS: 22:42 Constitutional: Negative for fever, chills, and weight loss, Eyes: Negative for injury, sb4 pain, redness, and discharge, ENT: Negative for injury, pain, and discharge, Respiratory: Negative for shortness of breath, cough, wheezing, and pleuritic chest pain, Abdomen/GI: Negative for abdominal pain, nausea, vomiting, diarrhea, and constipation, Back: Negative for injury and pain, Skin: Negative for injury, rash, and discoloration. 22:42 MS/extremity: Positive for injury or acute deformity, decreased range of motion, pain, swelling, tenderness. 22:42 All other systems are negative. Exam: 22:42 Head/Face: Normocephalic, atraumatic. Eyes: Extra-ocular motions intact. Periorbital sb4 areas with no swelling, redness, or edema. Neuro: Awake and alert, GCS 15, oriented to person, place, time, and situation. Cranial nerves II-XII grossly intact. Motor strength 5/5 in all extremities. Sensory grossly intact. Cerebellar exam normal. Normal gait. 22:42 Constitutional: The patient appears alert, awake, in obvious pain, uncomfortable. 22:42 Musculoskeletal/extremity: ROM: limited active range of motion due to pain, limited passive range of motion due to pain, Circulation is intact in all extremities. Sensation intact. Vital Signs: 22:34 BP 133 / 89; Pulse 98; Resp 16; Temp 98.8(O); Pulse Ox 98% on R/A; Weight 100.24 kg; kd3 Height 5 ft. 3 in. ; 22:40 BP 122 / 92; Pulse 92; Resp 18 S; Pulse Ox 100% on R/A; ha1 01/06 00:17 BP 118 / 88; Pulse 89; Resp 18; Pulse Ox 100% ; vc1 01/05 22:34 Body Mass Index 39.15 (100.24 kg, 160.02 cm) kd3 MDM: 01/05 22:24 Patient medically screened. sb4 22:42 Differential diagnosis: fracture, sprain. sb4 23:49 Data reviewed: vital signs, nurses notes, radiologic studies, plain films, I have sb4 discussed the patient's presentation/case with the attending Emergency Department Physician; and as a result, I will discharge patient. Independent interpretation of the following test(s) in the Emergency Department X-Ray: My interpretation is My interpretation of the ankle x-ray images are acute fibular fracture. Historians other than the Patient: Spouse/Significant Other: significant other. Counseling: I had a detailed discussion with the patient and/or guardian regarding: the historical points, exam findings, and any diagnostic results supporting the discharge/admit diagnosis, radiology results, the need for outpatient follow up, a orthopedic surgeon, to return to the emergency department if symptoms worsen or persist or if there are any questions or concerns that arise at home. Medication response: morphine markedly relieved the patient's pain. Symptoms have improved. 01/05 22:38 Order name: Ankle Left 3 View XRAY sb4 01/05 23:49 Order name: Crutches; Complete Time: 00:17 sb4 01/05 23:49 Order name: Misc. Order: ortho boot, left; Complete Time: 00:17 sb4 Administered Medications: 22:45 Drug: Zofran IM 4 mg Route: IM; Site: right vastus lateralis; ha1 23:54 Follow up: Response: No adverse reaction; Marked relief of symptoms vc1 22:47 Drug: morphine IM 4 mg Route: IM; Site: left deltoid; ha1 23:54 Follow up: Response: No adverse reaction; Marked relief of symptoms vc1 Disposition: 01/06 05:00 Co-signature as Attending Physician, Randolph Rachel MD I reviewed the patient's care rt provided by the Advanced Practice Provider and agree with the diagnosis and treatment plan. Disposition Summary: 01/05/23 23:51 Discharge Ordered Location: Home sb4 Problem: new sb4 Symptoms: have improved sb4 Condition: Stable sb4 Diagnosis - Nondisplaced fracture of lateral malleolus of left fibula sb4 Followup: sb4 - With: Minh Hess MD - When: 2 - 3 days - Reason: Further diagnostic work-up, Recheck today's complaints, Re-evaluation by your physician Discharge Instructions: - Discharge Summary Sheet sb4 - Crutch Use, Adult, [id number] sb4 - Fibular Fracture Rehab sb4 Forms: - Medication Reconciliation Form sb4 - Thank You Letter sb4 - Antibiotic Education sb4 - Prescription Opioid Use sb4 - Patient Portal Instructions sb4 Prescriptions: - acetaminophen-codeine 120-12 mg/5 mL Oral solution - take 10 milliliter by ORAL route every 4 to 6 hours as needed for pain; 100 sb4 milliliter; Refills: 0, Product Selection Permitted Signatures: Dispatcher [employer] Carlene Rodriguez, RN RN kd3 Tricia Dwyer RN RN ha1 Rin Fitzpatrick PAStefanC PAGerardo sb4 Randolph Rachel MD MD rt Etelvina Real RN vc1
--- NOTE | 2023-01-05 23:52 | ER ---
Nurse's Notes [facility] Name: Pau Patterson Age: 42 yrs Sex: Female : 1980 Arrival Date: 01/05/2023 Time: 22:17 Bed 13 Private MD: Diagnosis: Nondisplaced fracture of lateral malleolus of left fibula Presentation: 01/05 22:34 Chief complaint: Patient states: I was walking down a ramp about 20 minutes ago and i kd3 fell and my right leg went forward but my left leg went out and backwards underneath me and i felt a pop in my left ankle. It is 10 out of 10 pain now in my left ankle. Coronavirus screen: Vaccine status: Patient reports being unvaccinated. Ebola Screen: No symptoms or risks identified at this time. Initial Sepsis Screen: Does the patient meet any 2 criteria? No. Patient's initial sepsis screen is negative. Does the patient have a suspected source of infection? No. Patient's initial sepsis screen is negative. Risk Assessment: Do you want to hurt yourself or someone else? Patient reports no desire to harm self or others. Onset of symptoms was January 05, 2023. 22:34 Method Of Arrival: Ambulatory kd3 22:34 Acuity: BEVERLY 3 kd3 Triage Assessment: 22:36 General: Appears uncomfortable, Behavior is calm, cooperative. Pain: Complains of pain kd3 in left lateral ankle. Musculoskeletal: Reports Pain is 10 out of 10 on a pain scale. Historical: - PSHx: 22:36 Appendectomy; Cholecystectomy; kd3 - Immunization history:: Adult Immunizations up to date. - Social history:: Smoking status: Patient reports the use of cigarette tobacco products, denies chronic smoking, but will smoke occasionally. Screenin/16 00:[address] [facility] ED Fall Risk Assessment (Adult) History of falling in the last 3 months, vc1 including since admission Yes- single mechanical fall (1 pt) Confusion or Disorientation No (0 pts) Intoxicated or Sedated No (0 pts) Impaired Gait No (0 pts) Mobility Assist Device Used No (0 pt) Altered Elimination No (0 pt) Score/Fall Risk Level 0 - 2 = Low Risk Oriented to surroundings, Maintained a safe environment, Educated pt \T\ family on fall prevention, incl call for assistance when getting out of bed. Abuse screen: Denies threats or abuse. Nutritional screening: No deficits noted. Tuberculosis screening: No symptoms or risk factors identified. Assessment: 01/05 22:40 Reassessment: Patient and/or family updated on plan of care and expected duration. Pain ha1 level reassessed. Patient is alert, oriented x 3, equal unlabored respirations, skin warm/dry/pink. pain on left ankle. pain 10/10. 01/06 00:18 Reassessment: Patient and/or family updated on plan of care and expected duration. Pain vc1 level reassessed. Patient is alert, oriented x 3, equal unlabored respirations, skin warm/dry/pink. Patient states feeling better. Patient states symptoms have improved. Vital Signs: 01/05 22:34 BP 133 / 89; Pulse 98; Resp 16; Temp 98.8(O); Pulse Ox 98% on R/A; Weight 100.24 kg; kd3 Height 5 ft. 3 in. ; 22:40 BP 122 / 92; Pulse 92; Resp 18 S; Pulse Ox 100% on R/A; ha1 01/06 00:17 BP 118 / 88; Pulse 89; Resp 18; Pulse Ox 100% ; vc1 01/05 22:34 Body Mass Index 39.15 (100.24 kg, 160.02 cm) kd3 ED Course: 01/05 22:20 Patient arrived in ED. kj1 22:24 Rin Fitzpatrick PA-C is PHCP. sb4 22:24 Randolph Rachel MD is Attending Physician. sb4 22:36 Triage completed. kd3 22:36 Arm band placed on right wrist. kd3 23:01 Ankle Left 3 View XRAY In Process Unspecified. EDMS 23:51 Minh Hess MD is Referral Physician. sb4 01/06 00:17 Etelvina Real RN is Primary Nurse. vc1 00:18 No provider procedures requiring assistance completed. Patient did not have IV access vc1 during this emergency room visit. 00:19 Patient has correct armband on for positive identification. Bed in low position. Call vc1 light in reach. Provided Education on: crutch training, boot education. Administered Medications: 01/05 22:45 Drug: Zofran IM 4 mg Route: IM; Site: right vastus lateralis; ha1 23:54 Follow up: Response: No adverse reaction; Marked relief of symptoms vc1 22:47 Drug: morphine IM 4 mg Route: IM; Site: left deltoid; ha1 23:54 Follow up: Response: No adverse reaction; Marked relief of symptoms vc1 Medication: 01/06 00:19 VIS not applicable for this client. vc1 Outcome: 01/05 23:51 Discharge ordered by MD. [email or web address] 01/06 00:19 Discharged to home with crutches, with significant other. vc1 Condition: improved Discharge instructions given to patient, Instructed on discharge instructions, follow up and referral plans. medication usage, Demonstrated understanding of instructions, follow-up care, medications, Prescriptions given X 1. 00:19 Patient left the ED. vc1 Signatures: Dispatcher [employer] EDMS Kiley Galdamez kj1 Carlene South RN RN kd3 Etelvina Real RN RN 1 Tricia Dwyer RN RN ha1 Rin Fitzpatrick PA-C PA-C sb4
[2023-01-06 01:09] VITALS: TEMP 98.8
[2023-01-06 01:10] VITALS: O2SAT 100
[2023-01-06 01:12] VITALS: BP 118/88
--- NOTE | 2023-01-06 13:48 | RAD REPORT ---
EXAM DESCRIPTION: RAD - Ankle Left 3 View - 01/05/2023 10:59 pm CLINICAL HISTORY: The patient is 42 years old and is Female; PAIN TECHNIQUE: Frontal, lateral and oblique views of the left ankle. COMPARISON: No relevant prior studies available. FINDINGS: BONES/JOINTS: A fracture through the lateral malleolus at the level of the tibiotalar larry int is present. Mild obliquity of the fracture is noted with minimal displacement. No dislocation. SOFT TISSUES: Lateral ankle soft tissue swelling is present. IMPRESSION: Minimally displaced lateral malleolar fracture as described. Electronically signed by: Kerri Delgado MD 01/05/2023 11:27 PM CDT Due to temporary technical issues with the PACS/Fluency reporting system, reports are being signed by the in house radiologists without review as a courtesy to insure prompt reporting. The interpreting radiologist is fully responsible for the content of the report.
== END 2023-01-06 00:19 | disposition home or self-care (01) ==
LOC: ER 22:17
DX: S82.65XA Nondisplaced fracture of lateral malleolus of left fibula, initial encounter for closed fracture (principal); F17.210 Nicotine dependence, cigarettes, uncomplicated
CPT/HCPCS: 73610; 96372; 99284; J2405

== ENCOUNTER 2023-01-17 09:30 | Day surgery (SDC) | payer OTHER ==
[2023-01-15 11:41] LABS: Hematocrit 39.2 % (36.0-45.0); Lymphocytes % 24.1 % (15.3-44.8); MCV 93.8 fL (80-100); MPV 7.8 fL (7.6-11.3); RBC Red Blood Cell Count 4.18 M/uL (3.86-4.86)
--- NOTE | 2023-01-16 19:18 | EKG ---
Test Date: 2023-01-15 Test Time: 11:36:09 Continuous Dryout Operator Helper: OLYA MEASUREMENT RESULTS: Intervals: Rate: 65 WA: 128 QRSD: 94 QT: 396 QTc: 411 [place]: P: 47 WA: 128 QRS: 40 T: 54 INTERPRETIVE STATEMENTS: Normal sinus rhythm Low voltage QRS Borderline ECG No previous ECG available for comparison Electronically Signed On 01-16-23 19:16:51 CDT by Florian Virgen
[2023-01-17] MEDS ORDERED: CEFAZOLIN SODIUM 1 GM/VIAL ONE (10:13)
[2023-01-17] MEDS ORDERED: Ringers Lactate 1,000 ML IV ONE (10:13)
[2023-01-17] MEDS ORDERED: MIDAZOLAM HCL 2 MG/2 ML INJ ONE ×2 (10:42→11:05)
[2023-01-17] MEDS ORDERED: dexAMETHasone 10 MG/ML VIAL ONE (10:42)
[2023-01-17] MEDS ORDERED: FENTANYL CITR 100 MCG/2 ML ONE (10:42)
[2023-01-17] MEDS ORDERED: EPINEPHRINE/PF 1 MG/ML AMP ONE (10:43)
[2023-01-17 11:30] LABS: Urine Specific Gravity/Preg 1.025 (1.005-1.030)
[2023-01-17] MEDS ORDERED: propofoL 200 MG/20 ML VIAL IV ONE ×2 (12:10→12:15)
[2023-01-17] MEDS ORDERED: LIDOCAINE 1% MPF 30 ML VIAL ONE (12:11)
[2023-01-17] MEDS ORDERED: KETOROLAC 30 MG/ML INJ ONE (12:28)
[2023-01-17] MEDS ORDERED: Phenylephrine HCl 10 MG/ML 1 ML VIAL ONE (12:42)
[2023-01-17] MEDS ORDERED: NS 0.9% VIAL 10 ML ONE (12:42)
[2023-01-17] MEDS ORDERED: LIDOCAINE 1% 20 ML MDV ONE (12:49)
[2023-01-17] MEDS ORDERED: BACITRACIN OINTMENT 14 GM TUBE TOP ONE (12:49)
[2023-01-17 13:34] VITALS: O2SAT 100
--- NOTE | 2023-01-17 13:54 | RAD REPORT ---
EXAM DESCRIPTION: RAD - Fluoroscopy <1 Hour - 01/17/2023 1:19 pm CLINICAL HISTORY: ORIF LEFT ANKLE COMPARISON: No comparisons FINDINGS: Fluoroscopy time: 0.2 minutes
[2023-01-17 15:33] VITALS: BP 117/80; TEMP 97.7
--- NOTE | 2023-01-18 02:14 | OP ---
Date of Procedure: 01/17/2023 Surgeon: Minh Hess MD Preoperative Diagnosis: Left lateral malleolus fracture with widening of medial clear space. Postoperative Diagnosis: Left lateral malleolus fracture with widening of medial clear space. Procedure Performed: Left lateral malleolus, open reduction internal fixation. Estimated Blood Loss: 10 cc. Complications: There were no complications. Specimens: No pathology specimen sent. Indications For Operation: Ms. Patterson is a 42-year-old female, who unfortunately sustained an inj ury to her ankle. She came to see my office where x-rays were reviewed, which demonstrated a slightl y displaced lateral malleolus fracture, however, more significantly concerning was a widening of the medial clear space. Risks, benefits, and alternatives of different methods of treating this have bee n discussed with the patient with recommendation for open reduction internal fixation of lateral mall eolus to correct the lateral shift of the talus. She states she understands everything as presented and agrees to proceed. Description Of Procedure: The patient was taken to the operating room, placed in supine position. G eneral anesthesia obtained by staff. Following this, a well-padded tourniquet is placed on superior left thigh. Left lower extremity was then prepped and draped in the usual sterile fashion for proced ure. After this, C-arm was brought in to ensure we have good views and a standard lateral incision w as taken down carefully through skin and soft tissue. Meticulous hemostasis being maintained using B ovie electrocautery. This leads down to the fracture site which was slightly displaced. The foot is externally rotated to allow for better access to the fracture site which easily further displaces th e fracture and allow for good cleaning. After this, it was then reduced using a reduction clamp and the posterior aspect appeared to be quite small, felt to be more amenable to simple plating rather th an lag screw fixation with plating. Therefore, a 6 hole 1/3 tubular plate was then applied with some slight contouring, which reestablishes the fracture site and the medial clear space now appears norm al. The wound was gently irrigated and skin was closed using interrupted Vicryl sutures followed by nasim. The patient was then placed in extremely well-padded splint and awakened, taken to recovery room in good condition. No complications. SE/MODL Voice ID: [id number] Report ID: [id number]
== END 2023-01-17 14:35 | disposition home or self-care (01) ==
LOC: OR 09:30
PROVIDERS: ATTEND Orthopaedic Surgery
PROC: 0QSK04Z Reposition Left Fibula with Internal Fixation Device, Open Approach (ICD-10-PCS; principal; 2023-01-17 12:00)
DX: S82.62XA Displaced fracture of lateral malleolus of left fibula, initial encounter for closed fracture (principal)
CPT/HCPCS: 93005; 85025; 80048; 36415; 81025; 76000; 27792; A4216; J2704 ×2; J0171; J2371; J2001; J2250 ×2; J3010; J1100; J7120; J0690